=== PATIENT | female | born 1955 | race Caucasian/White ===

== ENCOUNTER 2022-07-02 13:31 | Outpatient (CLI) | payer MEDICARE, BC, SELFPAY ==
--- NOTE | 2022-07-02 13:40 | CRLHL7_ITS ---
For Patients: As a result of the Century Cures Act, medical imaging exams and procedure reports are released immediately into your electronic medical record. You may view this report before your referring provider. If you have questions, please contact your health care provider. BILATERAL SCREENING MAMMOGRAM WITH COMPUTER-AIDED DETECTION AND TOMOSYNTHESIS TECHNIQUE: CC and MLO views were obtained. These mammographic images have been obtained using full-field digital technique. These mammographic images were interpreted with the benefit of computer-aided detection. Breast Tomosynthesis was used in this interpretation. COMPARISON FILM: 05/29/21, 06/02/20, 05/25/19. FINDINGS: The breasts are almost entirely fatty IMPRESSION: There is no radiographic evidence for malignancy. ASSESSMENT: BI-RADS Category 1: Negative RECOMMENDATION: Routine screening mammogram in 1 year. A lay language report of this examination will be provided to the patient. Arsalan Davidson M.D. Diagnostic Radiologist [email or web address] RAVINDER/Dictated by: Arsalan Davidson MD @ 07/03/2022 9:24:00 AM (Electronically Signed)
== END 2022-07-02 13:32 | disposition home or self-care (01) ==
LOC: MAMMO 13:32
PROVIDERS: PCP Family Medicine; Visit Provider Family Medicine
DX: Z12.31 Encounter for screening mammogram for malignant neoplasm of breast (principal)
CPT/HCPCS: 77063; 77067

== ENCOUNTER 2023-07-03 09:50 | Outpatient (CLI) | payer MEDICARE, BC, SELFPAY ==
--- NOTE | 2023-07-03 10:15 | CRLHL7_ITS ---
For Patients: As a result of the Century Cures Act, medical imaging exams and procedure reports are released immediately into your electronic medical record. You may view this report before your referring provider. If you have questions, please contact your health care provider. BILATERAL SCREENING MAMMOGRAM WITH COMPUTER-AIDED DETECTION ND TOMOSYNTHESIS TECHNIQUE: CC and MLO views were obtained. These mammographic images have been obtained using full-field digital technique. These mammographic images were interpreted with the benefit of computer-aided detection. Breast Tomosynthesis was used in this interpretation. COMPARISON FILM: 07/02/22, 05/29/21, 06/02/20. FINDINGS: The breasts are almost entirely fatty. IMPRESSION: There is no radiographic evidence for malignancy. ASSESSMENT: BI-RADS Category 1: Negative RECOMMENDATION: Routine screening mammogram in 1 year. A lay language report of this examination will be provided to the patient. Arsalan Davidson M.D. Diagnostic Radiologist [email or web address] SP/Dictated by: Arsalan Davidson MD @ 07/03/2023 12:59:00 PM (Electronically Signed)
== END 2023-07-03 09:51 | disposition home or self-care (01) ==
LOC: MAMMO 09:52
PROVIDERS: PCP Family Medicine; Visit Provider Family Medicine
DX: Z12.31 Encounter for screening mammogram for malignant neoplasm of breast (principal)
CPT/HCPCS: 77063; 77067

== ENCOUNTER 2024-05-12 12:48 | Outpatient (RCR) | payer MEDICARE, BC, SELFPAY | END 2024-08-06 11:38 | disposition home or self-care (01) | PROVIDERS: PCP Family Medicine; Visit Provider Family Medicine | DX: M54.2 Cervicalgia (principal); Z51.89 Encounter for other specified aftercare | CPT/HCPCS: 97110; 97140; 97161 ==

== ENCOUNTER 2024-07-22 09:54 | Outpatient (CLI) | payer MEDICARE, BC, SELFPAY | END 2024-07-22 09:55 | disposition home or self-care (01) | LOC: MAMMO 09:55 | PROVIDERS: PCP Family Medicine; Visit Provider Family Medicine | DX: Z12.31 Encounter for screening mammogram for malignant neoplasm of breast (principal) | CPT/HCPCS: 77063; 77067 ==

== ENCOUNTER 2024-11-01 12:59 | Emergency (ER) | payer MEDICARE, BC, SELFPAY ==
[2024-11-01] VITALS (15 sets, daily range): BP systolic 151–187; BP diastolic 72–93; PULSE 37–55; RESP 10–22; TEMP 36.8; O2SAT 94–100; BMI 24.4
--- NOTE | 2024-11-01 13:47 | ED.ARRPALP ---
HPI - Arrhythmia/Palpitations General Chief Complaint: Arrhythmia/Palpitations Stated Complaint: Low pulse Time Seen by Provider: 11/01/24 13:00 History of Present Illness HPI narrative: This 68-year-old female comes here from urgent care because of bigeminy rhythm with some occasions of lightheadedness. The patient notices this morning and checked her pulse and blood pressure. Her pulse was registering in the 30s but maintaining good blood pressure. She does take atenolol and has been doing so for the past 20+ years. She does not report any chest pain. She does not have any exercise intolerance. She has states that she is otherwise in good health. Related Data Home Medications ?Medication ?Instructions ?Recorded ?Confirmed atenolol 25 mg tablet 25 mg PO DAILY 08/02/22 11/01/24 rosuvastatin 10 mg tablet 10 mg PO QPM 11/01/24 11/01/24 Allergies Allergy/AdvReac Type Severity Reaction Status Date / Time penicillin V Allergy Verified 11/01/24 12:08 Review of Systems Status of ROS: Reports: 10 or more systems reviewed and unremarkable except as noted in History and below Narrative: Constitutional: No fevers, no weight gain or loss. Eyes: No discharge. No vision changes. HENT: No congestion, no sore throat, no ear pain. Cardiovascular: No chest pain. Respiratory: No shortness of breath, no wheezes, no cough. Gastrointestinal: No abdominal pain, no vomiting, no diarrhea. Genitourinary: No dysuria, no hematuria. Musculoskeletal: Normal range of motion. Skin: No rashes, no pruritis. Neurological: No weakness, sensory change, speech change. Occasional lightheadedness. Endo/Heme/Allergies: No bruising or bleeding. No polydipsia. Pysch: no suicidality, no anxiety, no insomnia. All other systems reviewed and are negative. [facility] Medical History (Updated 11/01/24 @ 17:10 by Williams Holden MD) Melanoma in situ ?D03.9 - Melanoma in situ, unspecified (ICD-10) Psoriasis ?L40.9 - Psoriasis, unspecified (ICD-10) Social History Smoking Status: Never smoker Exam Narrative: Exam Narrative: Constitutional: Well-developed, well-nourished, no acute distress. HEENT: Normocephalic, atraumatic. Neck: Normal range of motion. Nontender. Supple. Heart: Regular. No murmurs. Bigeminy pattern. Intact distal pulses. Lungs: Clear to auscultation. No chest discomfort. No wheezes, rhonchi, or rales. Abdomen: Normal bowel sounds. Nontender. No rebound tenderness. Genitalia: Deferred. Back: No midline tenderness. Normal range of motion. Extremities: Normal range of motion. No injury. Skin: Intact. No rash. Warm. No erythema or pallor. Neurologic: No altered sensation. No weakness. Alert and oriented. Psychiatric: No suicidality. No anxiety or depression. No insomnia. Nursing notes and vitals signs are reviewed. Const: Vital Signs, click to edit/add: Vital Signs - 24 hr 11/01/24 13:11 11/01/24 13:28 11/01/24 13:30 Temperature 98.2 F Pulse Rate 43 L 42 L Pulse Rate [Pulse Oximeter] 55 L Respiratory Rate 16 12 14 Blood Pressure Blood Pressure [Ri ght Upper Arm] 187/72 H Pulse Oximetry 99 99 [facility] 11/01/24 13:45 11/01/24 14:00 11/01/24 14:07 Temperature Pulse Rate 41 L 39 L 39 L Pulse Rate [Pulse Oximeter] Respiratory Rate 19 17 Blood Pressure 151/93 H Blood Pressure [Ri ght Upper Arm] Pulse Oximetry 98 96 96 [facility] 11/01/24 14:15 11/01/24 14:30 11/01/24 14:45 Temperature Pulse Rate 40 L 37 L 41 L Pulse Rate [Pulse Oximeter] Respiratory Rate 11 L 15 22 Blood Pressure Blood Pressure [Ri ght Upper Arm] Pulse Oximetry 100 99 96 [facility] 11/01/[facility] 15:00 11/01/24 15:15 11/01/24 15:30 Temperature Pulse Rate 40 L 50 L 43 L Pulse Rate [Pulse Oximeter] Respiratory Rate 13 10 L Blood Pressure Blood Pressure [Ri ght Upper Arm] Pulse Oximetry 98 99 [facility] 11/01/24 15:45 11/01/24 16:00 11/01/24 16:15 Temperature Pulse Rate 43 L 38 L 38 L Pulse Rate [Pulse Oximeter] Respiratory Rate 14 Blood Pressure Blood Pressure [Ri ght Upper Arm] Pulse Oximetry 98 99 94 Oxygen Delivery Me thod Course Vital Signs Vital signs: Initial Vital Signs Temperature 98.2 F 11/01/24 13:11 Temperature Source Temporal Artery Scan 11/01/24 13:11 Pulse Rate 55 L 11/01/24 13:11 Respiratory Rate 16 11/01/24 13:11 Blood Pressure 187/72 H 11/01/24 13:11 Blood Pressure Mean 110 H 11/01/24 13:11 Blood Pressure Position Sitting 11/01/24 13:11 Pulse Oximetry 99 11/01/24 13:11 Oxygen Delivery Method Room Air 11/01/24 13:11 Vital Signs Temperature 98.2 F 11/01/24 13:11 Pulse Rate 55 L 11/01/24 13:11 Respiratory Rate 16 11/01/24 13:11 Blood Pressure 187/72 H 11/01/24 13:11 Pulse Oximetry 99 11/01/24 13:11 Oxygen Delivery Method Room Air 11/01/24 13:11 Temperature 98.2 F 11/01/24 13:11 Pulse Rate 38 L 11/01/24 16:15 Respiratory Rate 14 11/01/24 16:15 Blood Pressure 151/93 H 11/01/24 14:07 Pulse Oximetry 94 11/01/24 16:15 Oxygen Delivery Method Room Air 11/01/24 13:11 Medications Administered Medications: Generic Name Dose Route Start Last Admin Trade Name Freq PRN Reason Stop Dose Admin Sodium Chloride 1,000 mls @ 1,000 mls/hr 11/01/24 16:00 11/01/24 16:54 0.9 % Sodium Chloride 1000 Ml IV 11/01/24 16:59 Infused .Q1H JESSICA Infusion MDM - Arrhythmia/Palpitations MDM Narrative Medical decision making narrative: This patient comes in from urgent care clinic because of brief episodes of lightheadedness. At urgent care an EKG showed bigeminy. The patient is not having any other symptoms. She does not have any exercise intolerance does not report any chest pain. She states that she walks [phone] steps per day without any difficulty. She does not use alcohol. On arrival here EKG also shows a pattern of bigeminy with no ST or T-wave abnormalities. An IV was established where she did receive a L of normal saline. Labs are acquired and these returned with reassuring results. The patient continued on a heart monitor which showed episodes of normal sinus rhythm and rate mixed with some episodes of bigeminy. The patient is taking atenolol 25 mg daily and has been doing this for over 20 years. I advised her to continue this medication and recommended a heart monitor such as a Zio patch. The patient is declining this for now stating that she feels good almost all the time except for some brief feelings of lightheadedness. She is okay to be discharged home and understands that she can come back with any worsening symptoms. She plans to follow-up with her primary physician in will consider a heart monitor in the future. Lab Data Labs: Lab Results 11/01/24 Range/Units 14:00 WBC 6.13 (4.50-11.00) K/uL RBC 5.22 H (4.00-5.20) m/uL Hgb 14.7 (12.0-16.0) gm/dL Hct 47.4 (33.0-51.0) % MCV 91 (80-100) fL MCH 28 (26-34) pg MCHC 31 L (32-36) gm/dL RDW Coeff of Chris 13.7 (11.5-15.5) % Plt Count 198 (140-440) K/uL Neut % (Auto) 66.8 (42.0-72.0) % Lymph % (Auto) 20.6 (20-44) % Pine % (Auto) 9.6 (0.0-11.0) % Eos % (Auto) 2.3 (0.0-7.0) % Baso % (Auto) 0.7 (0.0-3.0) % Neut # (Auto) 4.10 (1.7-7.0) K/uL Lymph # (Auto) 1.26 (0.90-2.90) K/uL Pine # (Auto) 0.60 (0.00-0.90) K/UL Eos # (Auto) 0.14 (0.00-0.50) K/uL Baso # (Auto) 0.04 (0.00-0.30) K/uL Abs Immat Gran (auto) 0.00 (0.00-0.30) K/uL Imm/Tot Granulo (auto) 0.0 % Sodium 143 (135-149) mmol/L Potassium 3.8 (3.6-5.1) mmol/L Chloride 106 (96-114) mmol/L Carbon Dioxide 28 (20-32) mmol/L Anion Gap 9 (7-15) mEq/L BUN 20 (7-30) mg/dL Creatinine 0.8 (0.5-1.5) mg/dL Estimated Creat Clear 53.09 Estimated GFR 81 ml/min Glucose 178 H (60-115) mg/dL Calcium 9.3 (8.4-10.6) mg/dL Magnesium 2.2 (1.5-2.6) mg/dL Troponin I < 0.01 (0.01-0.04) ng/mL TSH 2.740 (0.270-4.20) uIU/mL ECG Data Attestation: I personally reviewed and interpreted this ECG as follows: Interpretation: Sinus rhythm with frequent premature ventricular complexes in a pattern of bigeminy. Rate is 78 beats per minute. There are no specific ST or T-wave abnormalities. Discharge Plan Discharge Clinical Impression: Frequent PVCs Patient Disposition: Home, Self-Care Condition: Stable Additional Instructions: Continue current plans. Consider heart monitoring with a Zio patch. Return if symptoms are persistent or worsening. Prescriptions: No Action rosuvastatin 10 mg tablet 10 mg PO QPM atenolol 25 mg tablet 25 mg PO DAILY Follow Up/Referrals: Colleen Johnson MD [Primary Care Provider, Family Practice] Stand Alone Forms: [email or web address] Instructions
[2024-11-01 14:10] LABS: Basophils Absolute Auto 0.04 K/uL (0.00-0.30); Basophils Percent Auto 0.7 % (0.0-3.0); Eosinophils Absolute Auto 0.14 K/uL (0.00-0.50); Eosinophils Percent Auto 2.3 % (0.0-7.0); Hematocrit 47.4 % (33.0-51.0); Hemoglobin* 14.7 gm/dL (12.0-16.0); Lymphocytes Absolute Auto 1.26 K/uL (0.90-2.90); Lymphocytes Percent Auto 20.6 % (20-44); Mean Corpuscular HGB Conc 31 gm/dL (32-36); Mean Corpuscular Hemoglobin 28 pg (26-34); Mean Corpuscular Volume 91 fL (80-100); Monocytes Percent Auto 9.6 % (0.0-11.0); Neutrophils Percent Auto 66.8 % (42.0-72.0); Platelet Count* 198 K/uL (140-440); RDW Coefficient of Variation % 13.7 % (11.5-15.5); Red Blood Count 5.22 m/uL (4.00-5.20); White Blood Count* 6.13 K/uL (4.50-11.00)
[2024-11-01 14:24] LABS: Chloride* 106 mmol/L (96-114); Sodium* 143 mmol/L (135-149)
[2024-11-01 14:25] LABS: Potassium* 3.8 mmol/L (3.6-5.1)
[2024-11-01 14:27] LABS: Anion Gap 9 mEq/L (7-15); Blood Urea Nitrogen* 20 mg/dL (7-30); Carbon Dioxide* 28 mmol/L (20-32); Creatinine* 0.8 mg/dL (0.5-1.5); Est. Creatinine Clearance* 53.09; Estimated Glomerular Filt Rate 81 ml/min
[2024-11-01 14:28] LABS: Calcium* 9.3 mg/dL (8.4-10.6); Glucose* 178 mg/dL (60-115); Magnesium* 2.2 mg/dL (1.5-2.6)
[2024-11-01 14:32] LABS: Slide Review Reflex No
[2024-11-01 14:46] LABS: Troponin I* < 0.01 ng/mL (0.01-0.04)
[2024-11-01] MEDS: 0.9 % SODIUM CHLORIDE 1000 ml 1,000 ML IV (16:07)
== END 2024-11-01 17:36 | disposition home or self-care (01) ==
PROVIDERS: Emergency Provider Emergency Medicine Emergency Medical Services; PCP Family Medicine
DX: I49.3 Ventricular premature depolarization (principal)
CPT/HCPCS: 36415; 80048; 83735; 84443; 84484; 85025; 93005; 94761; 99284; J7030